=== PATIENT | male | born 1995 ===

== ENCOUNTER 2020-11-05 16:01 | Outpatient (CLI) | payer OTHER, SELFPAY | END 2020-11-05 16:02 | disposition home or self-care (01) | LOC: ANHCOVIDVC 16:01 | PROVIDERS: PCP Family Medicine | DX: Z23 Encounter for immunization (principal) | CPT/HCPCS: 0001A; 91300 ==

== ENCOUNTER 2020-11-26 16:03 | Outpatient (CLI) | payer OTHER, SELFPAY | END 2020-11-26 16:04 | disposition home or self-care (01) | LOC: ANHCOVIDVC 16:04 | PROVIDERS: PCP Family Medicine | DX: Z23 Encounter for immunization (principal) | CPT/HCPCS: 0002A; 91300 ==